=== PATIENT | female | born 1990 | race Caucasian/White ===

== ENCOUNTER 2021-08-27 16:11 | Emergency (ER) | payer BC, SELFPAY ==
[2021-08-27] VITALS (7 sets, daily range): BP systolic 139–171; BP diastolic 85–103; PULSE 74–125; RESP 18–20; TEMP 36.8; O2SAT 95–98; BMI 34.7
--- NOTE | 2021-08-27 17:02 | XR_ITS ---
PROCEDURE INFORMATION: Exam: XR Chest Exam date and time: 08/27/2021 5:02 PM Age: 31 years old Clinical indication: Cough TECHNIQUE: Imaging protocol: XR of the chest. Views: 2 views. COMPARISON: No relevant prior studies available. FINDINGS: Lungs: Right lung base calcified granuloma. No consolidation. Pleural spaces: Unremarkable. No pleural effusion. No pneumothorax. Heart/Mediastinum: Unremarkable. No cardiomegaly. Bones/joints: Unremarkable. IMPRESSION: No acute findings.
[2021-08-27 17:12] LABS: Coronavirus 19, PCR Not Detected (NotDetected); Influenza A, PCR Not Detected (NotDetected); Influenza B, PCR Not Detected (NotDetected)
[2021-08-27 17:16] LABS: Basophils # 0.3 K/mm3 (0-0.2); Basophils % 2.1 % (0.1-2.0); Chloride 103 mmol/L (98-107); Eosinophils # 0.8 K/mm3 (0.0-0.4); Eosinophils % 5.9 % (0.1-12.0); Hemoglobin 14.1 g/dL (12.2-16.2); Lymphocytes % 22.7 % (10-50); Mean Corpuscular HGB Conc 32.8 g/dL (31.8-35.4); Mean Corpuscular Hemoglobin 26.5 pg (27.0-31.2); Mean Corpuscular Volume 80.8 fl (81-99); Mean Platelet Volume 7.3 fl (7.4-10.4); Monocytes # 0.8 K/mm3 (0.1-1.0); Monocytes % 5.9 % (1.7-9.3); Neutrophils # 8.4 K/mm3 (1.8-7.8); Neutrophils % 63.4 % (37.0-80.0); Platelet Count 444 K/mm3 (142-424); Potassium 4.6 mmoL/L (3.5-5.1); Red Blood Count 5.32 M/mm3 (4.20-5.40); Red Cell Distribution Width 15.1 % (11.5-17.5); Sodium 141 mmol/L (136-145); White Blood Count 13.3 K/mm3 (4.8-10.8)
[2021-08-27 17:19] LABS: Anion Gap 14.6 mEq/L (5-15); Blood Urea Nitrogen 13 mg/dl (7-17); Carbon Dioxide 28 mmol/L (22.0-30.0); Creatinine Clearance Estimated 165 mL/min (50-200); Estimated Glomerular Filt Rate 85 ml/min (>60); GFR (African American) 103 ML/MIN (>60)
[2021-08-27 17:20] LABS: Calcium 9.6 mg/dl (8.4-10.2); Glucose 100 mg/dl (74-100)
[2021-08-27 17:51] LABS: Thyroid Stimulating Hormone 1.21 uIU/mL (0.465-4.68)
--- NOTE | 2021-08-27 18:29 | [facility].EDGENADL ---
ED Disposition Clinical Impression: Cough Disposition: Home, Self-Care Condition on Discharge: Good Referrals: Kwesi Montero [Primary Care Provider] - - Critical Care Critical Care Time: No Attestation: On 08/27/21, the high probability of a clinically significant, sudden or life threatening deterioration of the following system(s) required my full and direct attention, intervention and personal management. The time I documented below is in addition to time spent performing reported procedures but includes the following listed in this critical care notation. Medical Decision Making - Medical Records Medical records reviewed: Yes: I reviewed the patient's medical records. - Hussain Inquiry Pt receiving controlled substance: No Vital Signs: 08/27/21 16:13 08/27/21 16:27 08/27/21 17:00 Temperature 98.2 F Temperature Source Oral Pulse Rate 121 H 125 H Pulse Rate [Right Radial] 120 H Respiratory Rate 18 Blood Pressure 139/102 H 149/99 H Blood Pressure [Right Arm] 142/103 H Blood Pressure Mean 123 117 Blood Pressure Mean [Right Arm] 116 Blood Pressure Source [Right Arm] Automatic Cuff Blood Pressure Position [Right Arm] Sitting 02 Sat by Pulse Oximetry 98 95 98 Oxygen Delivery Method Room Air 08/27/21 17:15 08/27/21 17:32 08/27/21 18:01 Temperature Temperature Source Pulse Rate 118 H 108 H 106 H Pulse Rate [Right Radial] Respiratory Rate 18 18 18 Blood Pressure 171/87 H 165/85 H 152/91 H Blood Pressure [Right Arm] Blood Pressure Mean 115 123 162 Blood Pressure Mean [Right Arm] Blood Pressure Source [Right Arm] Blood Pressure Position [Right Arm] 02 Sat by Pulse Oximetry 97 98 98 Oxygen Delivery Method - Lab Data Lab Results 08/27/21 16:57: WBC 13.3 H, RBC 5.32, Hgb 14.1, Hct 43.0, MCV 80.8 L, MCH 26.5 L, MCHC 32.8, RDW 15.1, Plt Count 444 H, MPV 7.3 L, Neut % (Auto) 63.4, Lymph % (Auto) 22.7, [place] % (Auto) 5.9, Eos % (Auto) 5.9, Baso % (Auto) 2.1 H, Neut # (Auto) 8.4 H, Lymph # (Auto) 3.0, [place] # (Auto) 0.8, Eos # (Auto) 0.8 H, Baso # (Auto) 0.3 H 08/27/21 16:57: Sodium 141, Potassium 4.6, Chloride 103, Carbon Dioxide 28, Anion Gap 14.6, BUN 13, Creatinine 0.80, Estimated Creat Clear 165, Estimated GFR 85, Est GFR ( Amer) 103, Glucose 100, Calcium 9.6, TSH 1.21 08/27/21 16:57: Free T4 0.40 L 08/27/21 16:57: SARS-CoV-2 (PCR) Not detected, Influenza A Untype (PCR) Not detected, Influenza Type B (PCR) Not detected Result diagrams: 08/27/21 16:57 08/27/21 16:57 Orders (Tests/Meds): ED MEDICATIONS Generic Name Dose Route Start Last Admin Trade Name Freq PRN Reason Stop Dose Admin Lactated Ringer's 500 mls @ 999 mls/hr 08/27/21 16:45 08/27/21 17:04 Lactated Ringer's 1000 Ml Bag IV 08/27/21 17:15 999 mls/hr .Q31M ANDREY Administration Medical Decision Narrative: Patient's vital signs are notable for tachycardia, improved with rest and fluids. Exam is otherwise unremarkable, specifically the incisional site looks very well healed. Checks x-ray did not demonstrate any source of the patient's cough. Viral panel negative. No respiratory distress, recommended supportive care. Regarding post thyroidectomy complications, calcium, thyroid levels relatively normal. Heart rate and flushing may be secondary however are suitable for follow-up next week. General Adult HPI - General Chief complaint: Upper Respiratory Infection Stated complaint: thyroidectomy post op, cough up mucus Time Seen by Provider: 08/27/21 18:33 Mode of Arrival: Ambulatory Limitations: No Limitations Description of Symptoms (Recalled from ER Triage Doc. by RN): Pt reports cough-productive at times for approx 1.5 weeks, reports incisional pain from thyroidectomy for approx 4 days. Pt reports had a total thyroidectomy 2 weeks ago. Pt denies fevers, or SOA. - History of Present Illness HPI narrative: Patient is a 31-year-old female status post thyroidec
== END 2021-08-27 18:44 | disposition home or self-care (01) ==
PROVIDERS: Emergency Provider Internal Medicine Critical Care Medicine; PCP Family Medicine
DX: R60.0 Localized edema (principal); R05.1 Acute cough; E89.0 Postprocedural hypothyroidism
CPT/HCPCS: 71046; 80048; 84439; 84443; 85025; 99283; C9803; U0003; U0005